=== PATIENT | male | born 1945 | race Caucasian/White ===

== ENCOUNTER → 2016-04-13 | Outpatient (CLI) | payer OTHER, BC ==
--- NOTE | ~2016-04-13 | P ---
[facility] [place] [address] PROCEDURE REPORT Name: CHINCHAUNCEY Shabbir Room #: REG [facility]#: [id number] Admission: 04/13/16 Attend Phys: Antoni Villegas MD Discharge: Date of : 49 Report #: [id number] THIS REPORT FOR: //name// CC: Antoni Lazar MD BRIEF HISTORY: The patient is a 70-year-old male with longstanding history of reflux disease with [id number] PPI therapy. He is not sure if he has complete control of his reflux symptoms. He also has had a persistent cough. PREOPERATIVE DIAGNOSIS: Reflex with persistent symptoms, on PPI therapy. POSTOPERATIVE DIAGNOSES: 1. Grade C erosive esophagitis. 2. Small less than 2 cm sliding type hiatus hernia. 3. Mild erythematous antral gastritis. MEDICATIONS: Deep sedation with propofol per anesthesia. SPECIMENS: 1. Biopsies of gastritis, rule out Helicobacter pylori. 2. Biopsy of GE junction, rule out Warren. ESTIMATED BLOOD LOSS: 3 mL. PROCEDURE: EGD with biopsy. FINDINGS: Prior to propofol sedation, procedure of upper endoscopy discussed with the patient, all potential risks, benefits, and complications. He indicates he understands and desires to proceed. With the patient in left lateral decubitus position, the [employer] video endoscope was inserted in the cervical esophagus under direct vision without difficulty. Examination of this organ through its entire length revealed normal esophageal mucosa down the squamocolumnar junction. At the squamocolumnar junction, there was a question of Warren's. However, I think this is more likely reflux esophagitis. No strictures or masses were seen. Mucosa was flat. No ulcers were seen. In addition, a less than 2 cm sliding type hiatus hernia was seen. Multiple biopsies were obtained. Scope was advanced in the stomach, was examined on end view as well as retroflexed views. There was a patchy erythematous gastritis. No ulcers or erosions were seen. The pylorus, duodenal bulb and postbulbar sweep were inspected and noted to be within normal limits. At that point, the scope was slowly withdrawn and careful circumferential views confirmed the above findings. The patient tolerated the procedure well. CONDITION OF THE PATIENT UPON DISCHARGE: Following procedure, the patient [address] [address] PROCEDURE REPORT Name: ELSYCHAUNCEY Shabbir [facility] #[facility] [id number] Admission: 04/13/16 Attend Phys: Antoni Villegas MD Discharge: Date of : 49 Report #: [id number] drowsy and prepared for colonoscopy. INSTRUCTIONS TO THE PATIENT AND FAMILY AT THE TIME OF DISCHARGE: He may have Wraren. However, I think it is more likely of reflux esophagitis, which has not been well controlled. We will follow up on biopsies and make further recommendations. If he does have Warren, he should return in 6 months for repeat examination of biopsy after the esophagitis have been healed. If he does not have Warren, we should continue more extensive treatment for reflux disease. We will place him on pantoprazole 40 mg twice daily. If he does well, he may be reduce to one daily in the future. His cough may take several months to resolve. If symptoms persist, he should return to see me or my nurse practitioner in follow up in about 3 months or so. <ELECTRONICALLY SIGNED> By: Antoni Villegas MD 04/13/16 1225 [id number] Antoni Villegas MD /nt
--- NOTE | ~2016-04-13 | S ---
[facility] [place] [address] SURGICAL PATH RPT PROCEDURE Name: ELSYCHAUNCEY Shabbir Room #: REG [facility] Magdy.#: [id number] Admission: 04/13/16 Date of : 49 Discharge: Report #: [id number] Path Case #: [id number] PATHOLOGY REPORT COLLECTION DATE: 04/13/2016 RECEIVED DATE: 04/13/2016 SUBMITTING PHYS: Dr. Antoni Villegas OTHER PHYS: Dr. [place] Lazar SPECIMEN(S) RECEIVED: A.Gastritis B.EG junction * * * * * * * * * * * * FINAL DIAGNOSIS: A. "Gastritis," biopsy: - Gastric mucosa with mild reactive changes and mild chronic inflammation. - Negative H. pylori immunohistochemical stain (block A1); control reacted appropriately. B. "EG junction," biopsy: - Esophageal squamous mucosa and gastric cardiac type mucosa with mild reactive changes, chronic inflammation, and focal intestinal metaplasia; no dysplasia seen. 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 Clinical and endoscopic correlation is required. Again, no dysplasia is seen. ([place]:; d/t: 04/14/16) PATHOLOGIST: Krystle Peterson M.D. REPORT ELECTRONICALLY SIGNED BY: Krystle Peterson M.D. DATE/TIME: 04/14/2016 14:34 * * * * * * * * * * * * GROSS PATHOLOGY: A. Received in formalin labeled "Chauncey Steinberg and gastritis," are 4 segments of silva soft tissue measuring 1.7 x 0.2 x 0.2 cm in aggregate dimensions and ranging from 0.3 to 0.5 cm in maximum dimension. The specimen is submitted entirely in cassette A1. B. Received in formalin labeled "Chauncey Steinberg and EG junction," are 5 segments of silva soft tissue measuring 1.3 x 0.3 x 0.3 cm in aggregate dimensions and ranging from 0.2 to 0.5 cm in maximum dimension. The specimen is submitted entirely in cassette B1. (TTL; 04/13/2016) [address] [address] SURGICAL PATH RPT PROCEDURE Name: CHAUNCEY STEINBERG Room #: REG [facility]#: [id number] Admission: 04/13/16 Date of : 49 Discharge: Report #: [id number] Path Case #: [id number] CLINICAL HISTORY: Poorly controlled reflux and cough INITIAL CPT CODE(S): A; 14676, 59504 B; 38853 Professional services performed by [facility] at [address] , [place] [address] Technical services performed by [facility] at [address] [place] [address], [address] [address]. [facility] [address] [address] PHONE: [phone] DIRECTOR: Jabari Valle M.D. * * * END OF REPORT * * *
--- NOTE | ~2016-04-13 | P ---
[facility] [place] [address] PROCEDURE REPORT Name: ELSYCHAUNCEY Shabbir Room #: REG [facility]#: [id number] Admission: 04/13/16 Attend Phys: Antoni Villegas MD Discharge: Date of : 49 Report #: [id number] THIS REPORT FOR: //name// CC: Antoni Lazar MD BRIEF HISTORY: The patient is a 70-year-old male with a history of colon polyps, for high risk colonoscopy. PREOPERATIVE DIAGNOSIS: History of colon polyps. POSTOPERATIVE DIAGNOSES: 1. Moderate sigmoid diverticulosis coli. 2. Internal hemorrhoids. MEDICATIONS: Deep sedation with propofol per anesthesia. SPECIMEN: None. ESTIMATED BLOOD LOSS: None. PROCEDURE: Colonoscopy to cecum and terminal ileum. FINDINGS: Prior to propofol sedation, procedure of colonoscopy discussed with the patient as well as potential risks, benefits, and complications. He indicates he understands and desires to proceed. With the patient in left lateral decubitus position, digital examination was completed, which revealed no abnormalities. Subsequently, the [employer] video colonoscope was introduced into the rectum, advanced under direct vision to the cecum. Done with minimal difficulty. The cecum was identified by the ileocecal valve and the appendiceal orifice. I was able to visualize the distal segment of terminal ileum, which was inspected and noted to be unremarkable. At that point, the scope was slowly withdrawn and careful circumferential views obtained including retroflexing the scope in the ascending colon. Upon slow withdrawal of the scope, the prep was noted to be excellent. The mucosa was within normal limits, normal vascular pattern, and normal light reflex. As we withdrew the scope, no mucosal abnormalities were seen. No polypoid lesions were seen. No neoplastic lesions were seen on this examination. In the sigmoid colon, there was noted to be a moderately severe diverticular disease without endoscopic evidence of diverticulitis. The scope was withdrawn in the rectum. Upon retroflexion, internal hemorrhoids were seen. Scope was withdrawn. The patient tolerated the procedure well. CONDITION OF THE PATIENT UPON DISCHARGE: Following procedure, the patient drowsy, aroused, conversant and will be discharged home when fully ambulatory. [facility] [address] [place] [address] PROCEDURE REPORT Name: CHINCHAUNCEY Room #: REG [facility]#: [id number] Admission: 04/13/16 Attend Phys: Antoni Villegas MD Discharge: Date of : 49 Report #: [id number] INSTRUCTIONS TO THE PATIENT AND FAMILY AT THE TIME OF DISCHARGE: No neoplastic lesions were seen on today's exam. He did not have a polyp on his last exam 5 years ago, but he had had polyps in the past I think followup exam in 10 years would be appropriate for this patient. He is to follow a high fiber diet due to the diverticular disease. He should return to care of Dr. [place] Lazar and return to see me as needed. Last colonoscopy was more than 5 years ago. Withdrawal time from the cecum was 11 minutes. <ELECTRONICALLY SIGNED> By: Antoni Villegas MD 04/13/16 1225 [id number] Antoni Villegas MD /nt
== END | disposition home or self-care (01) ==
LOC: GI 04-12 09:56
DX: K57.30 Diverticulosis of large intestine without perforation or abscess without bleeding (principal); K29.50 Unspecified chronic gastritis without bleeding; K22.10 Ulcer of esophagus without bleeding; K21.9 Gastro-esophageal reflux disease without esophagitis; K64.8 Other hemorrhoids; K44.9 Diaphragmatic hernia without obstruction or gangrene
CPT/HCPCS: 62110; 62900

== ENCOUNTER → 2018-12-23 | Outpatient (CLI) | payer OTHER, BC ==
[2018-12-23 12:25] LABS: CREATININE 0.8 mg/dL (0.7-1.3)
== END ==
LOC: LABMALL 11:25
PROVIDERS: Family Medicine
DX: J98.11 Atelectasis (principal); N28.1 Cyst of kidney, acquired

== ENCOUNTER → 2019-03-13 | Outpatient (CLI) | payer OTHER, BC ==
[~2019-03-13] VITALS: Ht 180.3 cm; Wt 79.4 kg
[~2019-03-13] MED LIST: CLONAZEPAM 0.50.5 M1 PO; NORVASC5 MG PO; PROTONIX40 M1 PO; VITAMIN D32000 UNIT PO; ZOCOR20 MG PO
--- NOTE | ~2019-03-13 | P ---
[facility] [place] [address] PROCEDURE REPORT Name: ELSYCHAUNCEY Shabbir Room #: REG [facility]#: [id number] Admission: 03/13/19 Attend Phys: Antoni Villegas MD Discharge: Date of : 49 Report #: [id number] THIS REPORT FOR: //name// CC: Antoni Lazar MD DATE OF SERVICE: 03/13/2019 OUTPATIENT COLONOSCOPY REPORT BRIEF HISTORY: The patient is a 73-year-old male who has a previous history of colon polyps. He recently developed rectal bleeding. He has seen blood on the tissue on occasion related to hemorrhoids; however, recently he has had increased bleeding. PREOPERATIVE DIAGNOSIS: Rectal bleeding. POSTOPERATIVE DIAGNOSIS: Moderate internal hemorrhoids with ulceration. MEDICATIONS: Deep sedation per anesthesia. SPECIMEN: None. ESTIMATED BLOOD LOSS: None. PROCEDURE: Colonoscopy to cecum and terminal ileum. FINDINGS: Prior to propofol sedation, procedure of colonoscopy discussed with the patient as well as potential risks and its complications. He indicates he understands and desires to proceed. DESCRIPTION OF PROCEDURE: With the patient in left lateral decubitus position, digital examination was completed, which revealed no abnormalities. Subsequently, the [employer] video colonoscope was introduced in the rectum, advanced under direct vision to the cecum. Done with minimal difficulty. The cecum was identified by the ileocecal valve and the appendiceal orifice. I was able to visualize the distal segment of the terminal ileum, which was inspected and noted to be unremarkable. At that point, the scope was slowly withdrawn and careful circumferential views were obtained including retroflexing the scope in the ascending colon. Upon slow withdrawal of the scope, the prep was excellent. The mucosa was within normal limits, normal vascular pattern, normal light reflex. As we withdrew the scope, the mucosa was within normal limits, normal vascular pattern, normal light reflex. There was normal colonic mucosa throughout the entire colon. No neoplastic lesions were seen. Bleeding lesions were not seen. AVMs were not seen. The colon exam was normal into in the [facility] [address] [place] [address] PROCEDURE REPORT Name: CHAUNCEY CHIN Room #: REG [facility]#: [id number] Admission: 03/13/19 Attend Phys: Antoni Villegas MD Discharge: Date of : 49 Report #: [id number] rectum. The rectum itself was unremarkable until we retroflexed at which time he was noted to have moderately large internal hemorrhoids. There was no evidence of bleeding. Also, several of them were superficially ulcerated. Stigmata of bleeding was not seen today. Scope was withdrawn. The patient tolerated the procedure well. CONDITION OF THE PATIENT UPON DISCHARGE: Following procedure, the patient drowsy, aroused, and conversant and will be discharged home when fully ambulatory. INSTRUCTIONS TO THE PATIENT AND FAMILY AT THE TIME OF DISCHARGE: No neoplastic or bleeding lesions were seen. Bleeding is likely from hemorrhoids, although there was no bleeding at this point in time. He has used some Anusol suppositories. Since there is still ulceration, I suggest he repeats Anusol suppositories. I would treat for at least 2 weeks. Also, if bleeding is further problem, consider surgical management. He also had been on aspirin and recently stopped, which he found helpful. I would suggest he discuss with his yeast culture operator, primary care physician about the role of long-term low dose aspirin with regards to his situation. No polyps seen today. Suggest followup colonoscopy in 10 years from now. Last colonoscopy was more than 2 years ago. Withdrawal time from the cecum was 11 minutes 27 seconds. By: 0942 1055 Antoni Villegas MD /nt
== END | disposition home or self-care (01) ==
LOC: GI 07:36
DX: K62.5 Hemorrhage of anus and rectum (principal); K64.8 Other hemorrhoids; Z86.010 Personal history of colon polyps; I10 Essential (primary) hypertension; E78.5 Hyperlipidemia, unspecified; K21.9 Gastro-esophageal reflux disease without esophagitis; Z98.41 Cataract extraction status, right eye; Z98.890 Other specified postprocedural states; Z79.899 Other long term (current) drug therapy; Z98.42 Cataract extraction status, left eye; Z85.828 Personal history of other malignant neoplasm of skin; Z87.891 Personal history of nicotine dependence
CPT/HCPCS: 62110; 62900